=== PATIENT | female | born 1955 | race Caucasian/White ===

== ENCOUNTER → 2017-12-23 | Outpatient (CLI) | payer MEDICARE ==
[2017-12-25 12:30] LABS: HPV Genotype 16 Not Detected (NOTDET); HPV Genotype 18 Not Detected (NOTDET)
[2017-12-27 12:46] LABS: HPV High Risk Other Not Detected (NOTDET)
== END | disposition home or self-care (01) ==
LOC: OLS 15:10
PROVIDERS: Obstetrics & Gynecology Gynecology
DX: Z12.4 Encounter for screening for malignant neoplasm of cervix (principal)
CPT/HCPCS: 87624; G0123

== ENCOUNTER → 2019-02-23 | Outpatient (CLI) | payer MEDICARE ==
[2019-02-25 15:06] LABS: HPV 16 Negative (Negative); HPV 18 Negative (Negative); HPV OTHER HR TYPES Negative (Negative)
== END | disposition home or self-care (01) ==
LOC: LAB SHORT 16:51 → LAB 16:51
PROVIDERS: Obstetrics & Gynecology Gynecology
DX: Z12.4 Encounter for screening for malignant neoplasm of cervix (principal)
CPT/HCPCS: 87624; G0123

== ENCOUNTER 2025-09-13 06:33 | Day surgery (SDC) | payer MEDICARE ==
[~2025-09-13] VITALS: Ht 162.6 cm; Wt 114.4 kg
[~2025-09-13 06:33] MED LIST: ARIP10; BUSP10 PO; Balanced Salt Epinephrine Irrigation Solution 500 mL IR SCH; CIDAFLEX TABLE1 EACH PO; DICLOFENAC SOD100 G1 TOP; ESCI10; GLIM4 PO; IBU600 MG PO; LISINOPRIL2.5 MG PO; LOMAIRA8 MG PO; METF500 PO; Moxifloxacin HCL 0.5 MG/0.1 ML 0.4MLSYR LEFTEYE SCH; NS 500 ML IV ONE; OMEP20ER PO; OXYB5 PO; OZEMPIC1 MG/0.71 SC; PHENYLEPHRINE\\TROPICAMIDE\\TETRACAINE OPHTHALMIC DILATING SOLN LEFTEYE PRN; Povidone-Iodine 450 DROP/30 ML Solution LEFTEYE SCH; Povidone-Iodine 450 DROP/30 ML Solution ONE; TOPI50 PO; Tetracaine HCl/Pf 0.5% Opth Soln 4 ml ONE; VENLAFAXINE HC225 MG PO; [UNRECOGNIZED DRUG - OTHER] PO
[2025-09-13] MEDS ORDERED: MOUNJARO5 MG/0.5 M SQ (07:11)
[2025-09-13] MEDS ORDERED: DESVENLAFAXINE50 M3 PO (07:12)
[2025-09-13] MEDS ORDERED: BRINTELLIX10 MG PO (07:12)
[2025-09-13] MEDS ORDERED: TOLTERODINE TART2 MG PO (07:12)
[2025-09-13] MEDS ORDERED: GABAPENTIN600 MG PO (07:13)
[2025-09-13] MEDS ORDERED: PANTOPRAZOLE SO40 M2 PO (07:13)
[2025-09-13] MEDS ORDERED: ATOR40TA PO (07:13)
[2025-09-13] MEDS ORDERED: INSULIN GL100 UNIT/2 SQ (07:13)
[2025-09-13] MEDS ORDERED: HUMULIN R100 UNIT/2 IV (07:14)
[2025-09-13] MEDS ORDERED: SPIRONOLACTONE25 MG PO (07:14)
[2025-09-13] MEDS ORDERED: NS 500 ML IV ONE (07:27)
--- NOTE | 2025-09-13 07:28 | NUR ---
09/13/25 0728 Brigida Ndiaye IN AT 0714. PLEKAMIETT IN AT 0715. CALL LIGHT IN REACH. PARTNER THERON AT BEDSIDE.
[2025-09-13] MEDS ORDERED: Midazolam HCl 1MG / ML 2ML Vial ONE (07:31)
[2025-09-13] MEDS ORDERED: Tetracaine HCl 0.5% Opth Soln 15 ml LEFTEYE ONE (07:44)
[2025-09-13 08:19] VITALS: BP 128/67
== END 2025-09-13 08:43 | disposition home or self-care (01) ==
LOC: ORSCSDS 06:33
PROVIDERS: Student in an Organized Health Care Education/Training Program
PROC: 08RK3JZ Replacement of Left Lens with Synthetic Substitute, Percutaneous Approach (ICD-10-PCS; principal; 2025-09-13 08:00)
DX: E11.36 Type 2 diabetes mellitus with diabetic cataract (principal); H25.813 Combined forms of age-related cataract, bilateral; H52.202 Unspecified astigmatism, left eye; I10 Essential (primary) hypertension; G47.33 Obstructive sleep apnea (adult) (pediatric); K21.9 Gastro-esophageal reflux disease without esophagitis; E66.9 Obesity, unspecified; Z68.41 Body mass index [BMI] 40.0-44.9, adult; Z79.84 Long term (current) use of oral hypoglycemic drugs; Z79.4 Long term (current) use of insulin; Z79.85 Long-term (current) use of injectable non-insulin antidiabetic drugs; Z79.899 Other long term (current) drug therapy
CPT/HCPCS: 82947; J2003; J2250; J7040; V2632

== ENCOUNTER 2025-09-20 06:36 | Day surgery (SDC) | payer MEDICARE ==
[~2025-09-20] VITALS: Ht 162.6 cm; Wt 114.2 kg
[~2025-09-20 06:36] MED LIST changes: +ATOR40TA PO; +BRINTELLIX10 MG PO; +DESVENLAFAXINE50 M3 PO; +GABAPENTIN600 MG PO; +HUMULIN R100 UNIT/2 IV; +INSULIN GL100 UNIT/2 SQ; +MOUNJARO5 MG/0.5 M SQ; -Moxifloxacin HCL 0.5 MG/0.1 ML 0.4MLSYR LEFTEYE SCH; +Moxifloxacin HCL 0.5 MG/0.1 ML 0.4MLSYR RIGHTEYE SCH; +PANTOPRAZOLE SO40 M2 PO; -PHENYLEPHRINE\\TROPICAMIDE\\TETRACAINE OPHTHALMIC DILATING SOLN LEFTEYE PRN; +PHENYLEPHRINE\\TROPICAMIDE\\TETRACAINE OPHTHALMIC DILATING SOLN RIGHTEYE PRN; -Povidone-Iodine 450 DROP/30 ML Solution LEFTEYE SCH; +Povidone-Iodine 450 DROP/30 ML Solution RIGHTEYE SCH; +SPIRONOLACTONE25 MG PO; +TOLTERODINE TART2 MG PO
[2025-09-20] MEDS ORDERED: Metformin HCl750 MG PO (07:02)
[2025-09-20] MEDS ORDERED: VITAMIN D32000 UNI1 PO (07:04)
[2025-09-20] MEDS ORDERED: BIOTIN PLUS 5,1 EACH PO (07:05)
[2025-09-20] MEDS ORDERED: NS 500 ML IV ONE (07:09)
[2025-09-20] MEDS ORDERED: Midazolam HCl 1MG / ML 2ML Vial ONE (07:36)
[2025-09-20] MEDS ORDERED: FentaNYL Citrate 50 MCG/ML 2 ML Injection ONE (07:36)
[2025-09-20 08:48] VITALS: BP 120/61
== END 2025-09-20 08:37 | disposition home or self-care (01) ==
LOC: ORSCSDS 06:36
PROVIDERS: Student in an Organized Health Care Education/Training Program
PROC: 08RJ3JZ Replacement of Right Lens with Synthetic Substitute, Percutaneous Approach (ICD-10-PCS; principal; 2025-09-20 08:00)
DX: E11.36 Type 2 diabetes mellitus with diabetic cataract (principal); H25.811 Combined forms of age-related cataract, right eye; H52.201 Unspecified astigmatism, right eye; Z96.1 Presence of intraocular lens; I10 Essential (primary) hypertension; K21.9 Gastro-esophageal reflux disease without esophagitis; E66.9 Obesity, unspecified; Z68.41 Body mass index [BMI] 40.0-44.9, adult; Z79.4 Long term (current) use of insulin; Z79.84 Long term (current) use of oral hypoglycemic drugs; Z79.85 Long-term (current) use of injectable non-insulin antidiabetic drugs; Z79.899 Other long term (current) drug therapy
CPT/HCPCS: 82947; J2003; J2250; J3010; J7040; V2632